=== PATIENT | male | born 1925 | race Caucasian/White ===

== ENCOUNTER 2016-11-12 02:46 | Inpatient (IN) | payer OTHER ==
--- NOTE | 2016-11-06 15:30 | EKG Report ---
Test Performed on : 11/06/2016 3:20:25 PM Test Reason : PAT Blood Pressure : / mmHG Vent. Rate : 065 BPM Atrial Rate : 065 BPM P-R Int : 236 ms QRS Dur : 144 ms QT Int : 466 ms P-R-T Axes : 033 115 015 degrees QTc Int : 484 ms Sinus rhythm. with 1st degree AV block. Right axis deviation Nonspecific intraventricular block Abnormal ECG When compared with ECG of 23-JUN-2014 18:43, MO interval has increased QRS axis shifted right Minimal criteria for Inferior infarct are no longer present T wave inversion less evident in Inferior leads Nonspecific T wave abnormality no longer evident in Anterolateral leads Confirmed by Cesar Blue MD ([id number]) on 11/06/2016 3:42:26 PM
[2016-11-06 15:47] LABS: HEMATOCRIT 38.3 % (42.0-52.0); HEMOGLOBIN 11.7 g/dL (14.0-18.0); MCH 27.9 PG (27-31); MCHC 30.5 g/dL (33-37); MCV 91.2 FL (81-99); MPV 10.3 FL (7.4-10.4); RBC 4.2 XMIL (4.7-6.1)
--- NOTE | 2016-11-06 16:03 | Diag Imaging Result Document ---
PROCEDURE NAME: CHEST-2 VIEWS - 11/06/2016 2 VIEWS OF THE CHEST: FINDINGS: There is a calcified granuloma in the right apex. There is a pacemaker on the left. There has been no significant change in the appearance of the chest since 06/30/2016. IMPRESSION: Stable chest.
[2016-11-06 16:14] LABS: CALCIUM 9.1 mg/dL (8.8-10.2); POTASSIUM 5.3 mmol/L (3.5-5.1)
[2016-11-12] MEDS ORDERED: ENTEREG ONE (06:58)
[2016-11-12] MEDS ORDERED: LR 1,000 ML ONE ×2 (06:59→08:25)
[2016-11-12] MEDS ORDERED: INVANZ 1 GM/NS 50 ML ONE (06:59)
[2016-11-12] MEDS ORDERED: SENSORCAINE 0.25%/EPI 1:200,000 ONE (08:25)
[2016-11-12 10:17] LABS: URINE SOURCE CATH
[2016-11-12 10:24] LABS: BILIRUBIN URINE NEGATIVE (NEGATIVE); BLOOD URINE SMALL (NEGATIVE); COLOR YELLOW; GLUCOSE URINE NEGATIVE (NEGATIVE); LEUKOCYTES URINE LARGE (NEGATIVE); NITRITE URINE NEGATIVE (NEGATIVE); PH URINE 6.5; PROTEIN URINE TRACE mg/dL (NEGATIVE); SP GRAVITY URINE 1.016; TURBIDITY URINE TURBID (CLEAR); UROBILINOGEN URINE NORMAL (NORMAL)
[2016-11-12 10:25] LABS: URINE MICRO REVIEW NEEDED? YES
[2016-11-12 10:33] LABS: UR EPITHELIAL CELLS <10 /HPF (<10); URINE BACTERIA NEGATIVE /HPF; URINE WBC TNTC /HPF (<10)
[2016-11-12 10:36] LABS: URINE CASTS NONE SEEN; URINE CRYSTALS NONE SEEN; URINE SMALL ROUND CELLS NONE SEEN
[2016-11-12] MEDS ORDERED: LR 500 ML ONE ×2 (11:40→12:54)
--- NOTE | 2016-11-12 11:55 | OPERATIVE NOTE ---
PROCEDURE DATE: 11/12/2016 PROCEDURE: Laparoscopic-assisted mobilization of splenic flexure; sigmoid colon resection; repair of colovesical fistula. SURGEON: Dr. Burrows. CNMT: Dr. Ann, who assisted in the anastomosis and exposure and decision making. Also assisted by Rafat Page and Rebecca Cleveland. PREOPERATIVE DIAGNOSIS: Colovesical fistula, diverticulosis. POSTOPERATIVE DIAGNOSIS: Colovesical fistula, diverticulosis. FINDINGS: The sigmoid colon was abnormal for about 22 cm. The fistula connection was actually pinched open or apart. We made the anastomosis between the descending colon and the distal sigmoid that felt normal. DESCRIPTION OF PROCEDURE: After satisfactory general endotracheal anesthesia was achieved, the patient was placed in Moo stirrups. The abdomen is prepped and draped in a sterile fashion. We anesthetized the skin just over the umbilicus, made a small vertical incision, dissected out the fascia, scored the fascia, introduced the 11 trocar Optiview technique into the abdominal cavity. We insufflated through this trocar under direct visualization. Used an 11 trocar in the left mid abdomen and a 5 trocar in the right upper quadrant. We placed the patient in reverse Trendelenburg and turned him to the right. We then incised the white line of Toldt from the mid abdomen cephalad toward the splenic flexure. We used the laparoscopic LigaSure to do that. Then raised up the greater omentum off the transverse colon and took it off from the mid transverse colon toward the splenic flexure as well. After doing this, were able to mobilize the splenic flexure toward the midline to give us a little bit more length. We were satisfied that we had mobilized it so that we could bring it down some if needed. After doing that, we then flattened the patient and made a 9 cm vertical incision in the hypogastrium below the umbilicus. We entered the abdominal cavity through this. We then placed the patient in Trendelenburg and continued the incision of the white line of Toldt down into the pelvis using the electrocautery and the ligature. We scored the peritoneum on the medial side as well. We are able to fracture the colovesical fistula with our finger to divide that. As we freed up the sigmoid loop we were able to pull it up into the wound and we identified a normal segment above the diseased segment and this is where we chose to divide the colon with a SOLOMON 80 blue cartridge. We then divided the mesentery with the LigaSure and continued from proximal to distal until we reached the distal normal sigmoid. We were able to pull it up proximal to the wound as well and the 2 normal segments of bowel came together satisfactorily without undue tension. Before I removed the diseased segment, I placed 3-0 silks as a seromuscular stitch on each the end of the colon and then we divided the abnormal segment with the electrocautery and handed it off. It measured 22 cm. We then placed a posterior row of 3-0 silks in a Lembert fashion and approximated those. We then removed the staple line from the proximal colon and constructed an inner layer of 3-0 Polysorb running locking stitch posteriorly, changed to a Zoe stitch anteriorly and then the final layer anteriorly was 3-0 silks in a Lembert fashion. This thereby completed and end-to-end 2 layer anastomosis. At this point we changed gloves and rid ourselves of the contaminated instruments. Again there was no undue tension on the anastomosis. We irrigated out the pelvis. I then looked at the back of the bladder and placed some 2-0 Polysorb [id number]-[id number] stitches to close that defect in the bladder. I placed a Edmundo drain into the pelvis bringing it out the right lower quadrant and placing it between the colon and the back of the bladder. We flattened the patient. We then proceeded to close the trocar hole in the left mid abdomen from inside with 2-0 Polysorb [id number] stitch. We closed the fascia in the supraumbilical port site with a 3-0 Polysorb simple stitch. We then closed the peritoneum with a 2-0 chromic. We closed the fascia with running #2 Prolene. We used 0.25 Marcaine with epinephrine lateral to the muscle in hopes that we could get some kind of intra-abdominal tap block. We also injected the subcutaneous tissue to help relieve the discomfort in the wound. We then closed the skin at each incision including the trocar sites with alonzo. Sterile dressings were applied. The drain was secured to the skin with a 2-0 silk. He tolerated procedure satisfactorily and sent to the recovery room in satisfactory condition.
[2016-11-12] MEDS ORDERED: DIPRIVAN 1% ONE (12:25)
[2016-11-12] MEDS ORDERED: VERSED ONE (12:26)
[2016-11-12] MEDS ORDERED: FENTANYL ONE (12:26)
[2016-11-12] MEDS ORDERED: LYRICA PO PRN (12:35)
[2016-11-12] MEDS ORDERED: NEURONTIN PO PRN (12:35)
[2016-11-12] MEDS ORDERED: ZOFRAN IV PRN (12:35)
[2016-11-12] MEDS ORDERED: [UNRECOGNIZED DRUG - OTHER] LEFT EYE SCH ×2 (12:35→13:30)
[2016-11-12] MEDS: MORPHINE ONE ×2 (12:40→13:00)
[2016-11-12] MEDS ORDERED: NEOSTIGMINE ONE (12:58)
[2016-11-12] MEDS ORDERED: EPHEDRINE ONE (12:58)
[2016-11-12] MEDS ORDERED: STERILE WATER INJ. ONE (12:58)
[2016-11-12] MEDS ORDERED: LIDOCAINE SYRINGE ONE (12:58)
[2016-11-12] MEDS ORDERED: NORCURON ONE (12:58)
[2016-11-12] MEDS ORDERED: LUBRIFRESH PM OPH OINTMENT ONE (12:58)
[2016-11-12] MEDS ORDERED: NEO-SYNEPHRINE ONE (12:58)
[2016-11-12] MEDS ORDERED: LR 3,000 ML ONE (12:59)
[2016-11-12] MEDS ORDERED: OFIRMEV 1000 MG/ISOTONIC SOLN 100 ML ONE (12:59)
[2016-11-12] MEDS ORDERED: QUELICIN (DOSE) ONE (12:59)
[2016-11-12] MEDS ORDERED: ROBINUL ONE (12:59)
[2016-11-12] MEDS: NS + KCL 20 MEQ 1,000 ML IV SCH ×2 (13:51→22:11)
[2016-11-12] MEDS: ZOSYN 3.375 GM/NS 50 ML IV SCH ×2 (14:00→19:33)
[2016-11-12] MEDS ORDERED: BLISTEX MEDICATED BERRY LIP BALM TOP PRN (14:02)
[2016-11-12] MEDS: OFIRMEV 1000 MG/ISOTONIC SOLN 100 ML IV SCH ×2 (15:58→22:11)
[2016-11-12] MEDS: DILAUDID IV PRN ×2 (16:53→22:29)
[2016-11-12] MEDS ORDERED: MIRAPEX PO SCH (21:30)
[2016-11-12] MEDS: FLOMAX PO SCH (21:38)
[2016-11-12] MEDS: LOVENOX SUBQ SCH (21:38)
[2016-11-12] MEDS: PERIDEX MT SCH (21:38)
[2016-11-12] MEDS: PRED FORTE 1% OPH SUSPENSION RIGHT EYE SCH (21:39)
[2016-11-12] MEDS: PROSCAR PO SCH (21:40)
[2016-11-12] MEDS: LYRICA PO PRN (22:15)
[2016-11-12] MEDS: MIRAPEX PO SCH (22:17)
[2016-11-13] MEDS: ZOSYN 3.375 GM/NS 50 ML IV SCH ×3 (02:14→13:48)
[2016-11-13] MEDS: OFIRMEV 1000 MG/ISOTONIC SOLN 100 ML IV SCH ×4 (04:55→21:47)
[2016-11-13 05:21] LABS: MANUAL DIFF NEEDED? NO
[2016-11-13 05:24] LABS: BASO% 0.1 % (0.0-0.8); EOS# 0.01 X1000 (0.0-0.7); EOS% 0.1 % (0.0-10.0); HEMOGLOBIN 11.5 g/dL (14.0-18.0); LYMPH# 1.39 X1000 (1.2-3.4); LYMPH% 13.1 % (20.5-51.1); MCH 27.9 PG (27-31); MCHC 31.1 g/dL (33-37); MCV 89.8 FL (81-99); MONO# 1.02 X1000 (0.11-0.59); MONO% 9.6 % (1.7-9.3); MPV 10.3 FL (7.4-10.4); NEUT% 77.1 % (42.2-75.2); PLT 181 X1000 (130-400); RBC 4.12 XMIL (4.7-6.1)
[2016-11-13 05:54] LABS: CALCIUM 8.4 mg/dL (8.8-10.2)
[2016-11-13] MEDS: THYROID PO SCH (06:29)
[2016-11-13] MEDS: NS + KCL 20 MEQ 1,000 ML IV SCH ×2 (06:30→15:19)
[2016-11-13] MEDS: ENTEREG PO SCH ×2 (08:03→21:47)
[2016-11-13] MEDS: COENZYME Q10 PO SCH (08:03)
[2016-11-13] MEDS: IMDUR PO SCH (08:04)
[2016-11-13] MEDS: FLOMAX PO SCH ×2 (08:04→21:47)
[2016-11-13] MEDS: CORDARONE PO SCH (08:04)
[2016-11-13] MEDS: PERIDEX MT SCH ×2 (08:05→21:46)
[2016-11-13] MEDS: PRED FORTE 1% OPH SUSPENSION RIGHT EYE SCH (08:05)
[2016-11-13] MEDS: DILAUDID IV PRN ×2 (11:11→21:46)
[2016-11-13] MEDS: MIRAPEX PO SCH (21:46)
[2016-11-13] MEDS: PROSCAR PO SCH (21:47)
[2016-11-13] MEDS: LOVENOX SUBQ SCH (21:47)
[2016-11-14] MEDS: NS + KCL 20 MEQ 1,000 ML IV SCH ×4 (00:38→18:24)
[2016-11-14] MEDS: DILAUDID IV PRN ×5 (01:48→22:56)
[2016-11-14] MEDS: OFIRMEV 1000 MG/ISOTONIC SOLN 100 ML IV SCH ×4 (03:53→21:39)
[2016-11-14] MEDS: PRED FORTE 1% OPH SUSPENSION RIGHT EYE SCH ×3 (05:14→21:39)
[2016-11-14 05:50] LABS: MANUAL DIFF NEEDED? NO
[2016-11-14 05:53] LABS: BASO% 0.1 % (0.0-0.8); EOS# 0.07 X1000 (0.0-0.7); HEMATOCRIT 34.5 % (42.0-52.0); HEMOGLOBIN 10.8 g/dL (14.0-18.0); IMM GRAN# 0.04 X1000 (0.0-0.04); IMM GRAN% 0.6 % (0.0-0.5); LYMPH# 0.77 X1000 (1.2-3.4); LYMPH% 10.8 % (20.5-51.1); MCH 27.8 PG (27-31); MCHC 31.3 g/dL (33-37); MCV 88.9 FL (81-99); MONO# 0.69 X1000 (0.11-0.59); MONO% 9.6 % (1.7-9.3); MPV 10.3 FL (7.4-10.4); NEUT% 77.9 % (42.2-75.2); PLT 171 X1000 (130-400); RBC 3.88 XMIL (4.7-6.1)
[2016-11-14 06:12] LABS: AGAP 12; BUN 9 mg/dL (8-22); CALCIUM 8.5 mg/dL (8.8-10.2); CHLORIDE 102 mmol/L (98-107); COSMO 269; POTASSIUM 4.6 mmol/L (3.5-5.1); SODIUM 135 mmol/L (136-145); TCO2 21 mmol/L (25-35)
[2016-11-14] MEDS: THYROID PO SCH (07:39)
[2016-11-14] MEDS: LOVENOX SUBQ SCH ×2 (09:35→21:39)
[2016-11-14] MEDS: CORDARONE PO SCH (10:18)
[2016-11-14] MEDS: IMDUR PO SCH (10:18)
[2016-11-14] MEDS: ENTEREG PO SCH ×2 (10:18→21:37)
[2016-11-14] MEDS: FLOMAX PO SCH ×2 (10:18→21:37)
[2016-11-14] MEDS: COENZYME Q10 PO SCH (10:18)
[2016-11-14] MEDS: PERIDEX MT SCH ×2 (10:18→21:37)
[2016-11-14] MEDS: GLUCOPHAGE PO SCH (17:18)
[2016-11-14] MEDS: MIRAPEX PO SCH (21:37)
[2016-11-14] MEDS: PROSCAR PO SCH (21:37)
[2016-11-15] MEDS: DILAUDID IV PRN ×4 (02:19→20:42)
[2016-11-15] MEDS: NS + KCL 20 MEQ 1,000 ML IV SCH ×2 (03:05→09:20)
[2016-11-15] MEDS: OFIRMEV 1000 MG/ISOTONIC SOLN 100 ML IV SCH ×2 (03:06→09:20)
[2016-11-15 05:21] LABS: MANUAL DIFF NEEDED? NO
[2016-11-15 05:26] LABS: BASO% 0.1 % (0.0-0.8); EOS# 0.14 X1000 (0.0-0.7); EOS% 1.7 % (0.0-10.0); HEMATOCRIT 36.8 % (42.0-52.0); HEMOGLOBIN 11.6 g/dL (14.0-18.0); IMM GRAN# 0.03 X1000 (0.0-0.04); IMM GRAN% 0.4 % (0.0-0.5); LYMPH# 1.12 X1000 (1.2-3.4); LYMPH% 13.7 % (20.5-51.1); MCH 28.1 PG (27-31); MCHC 31.5 g/dL (33-37); MCV 89.1 FL (81-99); MONO# 0.63 X1000 (0.11-0.59); MONO% 7.7 % (1.7-9.3); MPV 10.4 FL (7.4-10.4); NEUT% 76.4 % (42.2-75.2); PLT 207 X1000 (130-400); RBC 4.13 XMIL (4.7-6.1)
[2016-11-15 06:09] LABS: AGAP 10; BUN 7 mg/dL (8-22); CALCIUM 8.7 mg/dL (8.8-10.2); CHLORIDE 104 mmol/L (98-107); COSMO 275; POTASSIUM 4.1 mmol/L (3.5-5.1); SODIUM 136 mmol/L (136-145); TCO2 22 mmol/L (25-35)
[2016-11-15] MEDS: THYROID PO SCH (06:39)
[2016-11-15] MEDS: PERIDEX MT SCH ×2 (09:20→20:41)
[2016-11-15] MEDS: ENTEREG PO SCH (09:23)
[2016-11-15] MEDS: LOVENOX SUBQ SCH ×2 (09:23→20:41)
[2016-11-15] MEDS: CORDARONE PO SCH (09:24)
[2016-11-15] MEDS: COENZYME Q10 PO SCH (09:24)
[2016-11-15] MEDS: FLOMAX PO SCH ×2 (09:24→20:41)
[2016-11-15] MEDS: IMDUR PO SCH (09:24)
[2016-11-15] MEDS: GLUCOPHAGE PO SCH ×2 (09:24→17:37)
[2016-11-15] MEDS: SECTRAL PO SCH (09:24)
[2016-11-15] MEDS: PRED FORTE 1% OPH SUSPENSION RIGHT EYE SCH ×2 (09:33→20:43)
[2016-11-15] MEDS: NORCO-10 PO PRN (20:41)
[2016-11-15] MEDS: MIRAPEX PO SCH (20:41)
[2016-11-15] MEDS: PROSCAR PO SCH (20:42)
[2016-11-16] MEDS: DILAUDID IV PRN ×3 (00:21→09:40)
[2016-11-16 05:57] LABS: MANUAL DIFF NEEDED? NO
[2016-11-16 06:06] LABS: BASO% 0.2 % (0.0-0.8); EOS# 0.22 X1000 (0.0-0.7); EOS% 3.6 % (0.0-10.0); HEMATOCRIT 34.8 % (42.0-52.0); HEMOGLOBIN 10.8 g/dL (14.0-18.0); IMM GRAN# 0.03 X1000 (0.0-0.04); IMM GRAN% 0.5 % (0.0-0.5); LYMPH# 0.99 X1000 (1.2-3.4); LYMPH% 16.2 % (20.5-51.1); MCH 27.6 PG (27-31); MONO# 0.51 X1000 (0.11-0.59); MONO% 8.3 % (1.7-9.3); MPV 9.9 FL (7.4-10.4); NEUT% 71.2 % (42.2-75.2); PLT 212 X1000 (130-400); RBC 3.91 XMIL (4.7-6.1)
[2016-11-16 06:42] LABS: AGAP 11; BUN 7 mg/dL (8-22); CALCIUM 8.5 mg/dL (8.8-10.2); CHLORIDE 106 mmol/L (98-107); COSMO 279; POTASSIUM 4.3 mmol/L (3.5-5.1); SODIUM 140 mmol/L (136-145); TCO2 23 mmol/L (25-35)
[2016-11-16] MEDS: NS + KCL 20 MEQ 1,000 ML IV SCH (06:52)
[2016-11-16] MEDS: THYROID PO SCH (06:52)
[2016-11-16] MEDS: PERIDEX MT SCH ×2 (09:19→21:15)
[2016-11-16] MEDS: SECTRAL PO SCH (09:19)
[2016-11-16] MEDS: COENZYME Q10 PO SCH (09:19)
[2016-11-16] MEDS: CORDARONE PO SCH (09:20)
[2016-11-16] MEDS: GLUCOPHAGE PO SCH ×2 (09:20→18:27)
[2016-11-16] MEDS: IMDUR PO SCH (09:20)
[2016-11-16] MEDS: FLOMAX PO SCH ×2 (09:20→21:14)
[2016-11-16] MEDS: PRED FORTE 1% OPH SUSPENSION RIGHT EYE SCH ×2 (09:21→21:15)
[2016-11-16] MEDS: ELIQUIS PO SCH ×2 (09:40→21:14)
[2016-11-16] MEDS: NORCO-10 PO PRN ×2 (14:36→21:14)
[2016-11-16] MEDS: PROSCAR PO SCH (21:14)
[2016-11-16] MEDS: MIRAPEX PO SCH (21:14)
[2016-11-17] MEDS: THYROID PO SCH (06:26)
[2016-11-17] MEDS: DILAUDID IV PRN (08:13)
[2016-11-17] MEDS: FLOMAX PO SCH ×2 (09:38→21:00)
[2016-11-17] MEDS: CORDARONE PO SCH (09:38)
[2016-11-17] MEDS: IMDUR PO SCH (09:38)
[2016-11-17] MEDS: ELIQUIS PO SCH ×2 (09:38→21:01)
[2016-11-17] MEDS: GLUCOPHAGE PO SCH ×2 (09:38→21:01)
[2016-11-17] MEDS: PERIDEX MT SCH ×2 (09:38→21:00)
[2016-11-17] MEDS: COENZYME Q10 PO SCH (09:39)
[2016-11-17] MEDS: SECTRAL PO SCH (09:39)
[2016-11-17] MEDS: PRED FORTE 1% OPH SUSPENSION RIGHT EYE SCH ×2 (09:39→21:02)
--- NOTE | 2016-11-17 09:39 | Diag Imaging Result Document ---
PROCEDURE NAME: CYSTOGRAM 1 2 OR 3 FILMS - 11/17/2016 CYSTOGRAM: FINDINGS: The bladder was filled with water soluble contrast for a volume of approximately 200 mL. At this point the patient had a strong urge to evacuate his bowels. There is no evidence of extravasation of contrast from the bladder into the colon however and the patient was able to void completely. A Arvizu catheter remains in place. There is a moderate amount of fecal debris remaining in the colon, particularly in the ascending colon and rectosigmoid. The stomach and small bowel are not distended. IMPRESSION: No evidence of residual vesicocolic fistula.
[2016-11-17] MEDS: PYRIDIUM PO SCH ×3 (12:05→21:01)
[2016-11-17] MEDS ORDERED: PROTONIX IV SCH (20:15)
[2016-11-17] MEDS ORDERED: SODIUM CHLORIDE 0.9% INJ SCH (20:15)
[2016-11-17] MEDS ORDERED: MIRAPEX PO SCH (21:00)
[2016-11-17] MEDS: PROSCAR PO SCH (21:00)
[2016-11-17] MEDS: NORCO-10 PO PRN (22:03)
[2016-11-18] MEDS: DILAUDID IV PRN (02:06)
[2016-11-18] MEDS: LYRICA PO PRN (02:16)
[2016-11-18] MEDS: NS + KCL 20 MEQ 1,000 ML IV SCH (06:23)
[2016-11-18] MEDS: PYRIDIUM PO SCH (06:24)
[2016-11-18] MEDS: THYROID PO SCH (06:24)
[2016-11-18 07:43] VITALS: BP 149/74
--- NOTE | 2016-11-20 05:38 | DISCHARGE SUMMARY ---
ADMISSION DATE: 11/12/2016 DISCHARGE DATE: 11/18/2016 PRIMARY DISCHARGE DIAGNOSIS: Colovesical fistula. OTHER DIAGNOSES: 1. 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 2. Cerebrovascular disease with history of a stroke. 3. Coronary artery disease. 4. Gastroesophageal reflux disease. PRIMARY PROCEDURE: Repair of colovesical fistula. HISTORY: This is an 89-year-old patient with a colovesical fistula who has had significant diverticular disease because of his fistula. He was prepped as an outpatient and admitted the morning of the . He went to the operating room and underwent a laparoscopic splenic flexure mobilization, and then an open sigmoid resection with suture repair of his bladder. Postoperatively, he did generally well. He was maintained in the unit. The first night after surgery, he was placed on Zosyn. We awaited till the first postoperative day to start his Lovenox. He was transferred out of the unit on the first postoperative day. He was started on liquids on the 2nd postoperative day. We restarted his p.o. medicines. We increased his Lovenox to twice a day. On the 3rd postoperative day, we stopped his Entereg because of some cramping. We removed his drain and we advanced his diet. On the 4th postoperative day, we did a C S of his urine and restarted his Eliquis and stopped the Lovenox. The Lovenox was 5 mg b.i.d. On the fifth postoperative day, we did a cystogram and it was negative for leak. We put him on Pyridium at the time that we removed his Arvizu. By the 6th postoperative day, he was tolerating solid food. His bowels had moved. He was urinating satisfactorily. He had one episode of trouble swallowing but he is to follow up with Dr. Carmona as an outpatient to further evaluate a possible distal esophageal stricture. I am pleased with his progress. His urine culture came back negative so we did not discharge him on any antibiotics. We did discharge him home on some pain medication as well as Pyridium for his urinary analgesia. He will resume his other usual medications.
== END 2016-11-18 09:54 | disposition home or self-care (01) | DRG 655 ==
LOC: SURHOLD 02:46 → ICU 11:27 → 4N 11-13 16:53
PROVIDERS: ADMIT Surgery; ATTEND Surgery
PROC: 0DBN0ZZ Excision of Sigmoid Colon, Open Approach (ICD-10-PCS; principal; 2016-11-12 08:45)
PROC: 0TQB0ZZ Repair Bladder, Open Approach (ICD-10-PCS; 2016-11-12 08:45)
DX: N32.1 Vesicointestinal fistula (principal); I11.0 Hypertensive heart disease with heart failure; E11.40 Type 2 diabetes mellitus with diabetic neuropathy, unspecified; I27.2 Other secondary pulmonary hypertension; I50.9 Heart failure, unspecified; Z95.1 Presence of aortocoronary bypass graft; K57.30 Diverticulosis of large intestine without perforation or abscess without bleeding; F51.02 Adjustment insomnia; Z82.3 Family history of stroke; Z87.891 Personal history of nicotine dependence; Z79.84 Long term (current) use of oral hypoglycemic drugs; Z79.899 Other long term (current) drug therapy; Z79.82 Long term (current) use of aspirin; Z79.02 Long term (current) use of antithrombotics/antiplatelets; Z86.73 Personal history of transient ischemic attack (TIA), and cerebral infarction without residual deficits; K21.9 Gastro-esophageal reflux disease without esophagitis; Z96.651 Presence of right artificial knee joint; H54.0 Blindness, both eyes; Z95.5 Presence of coronary angioplasty implant and graft; Z95.0 Presence of cardiac pacemaker; I34.0 Nonrheumatic mitral (valve) insufficiency; K44.9 Diaphragmatic hernia without obstruction or gangrene; N40.0 Benign prostatic hyperplasia without lower urinary tract symptoms; Z87.442 Personal history of urinary calculi; E03.9 Hypothyroidism, unspecified
CPT/HCPCS: 71020; 74430; 80048; 81001; 82948; 85025; 85027; 86850; 86900; 86901; 87088; 88307; 93005; 93010; 94002; 94761; 94762; 94799; J0131; J0330; J1170; J1335; J1650; J2250; J2270; J2370; J2405; J2543; J3010; J3480; J7120; Q9958; S0138; 97001-GP; 97116-GP; J2710

== ENCOUNTER 2017-03-24 14:12 | Inpatient (IN) ==
--- NOTE | 2017-03-24 14:57 | Diag Imaging Result Document ---
PROCEDURE NAME: HEAD W/O CONTRAST - 03/24/2017 CT BRAIN WITHOUT CONTRAST. TECHNIQUE: Dose reduction protocol. COMPARISON: Compared to 01/29/2016. FINDINGS: No parenchymal hemorrhage. No epidural or subdural hematoma. No subarachnoid hemorrhage. There is atrophy with chronic microvascular ischemic changes. The appearance is similar to that of the prior exam. No mass identified on this noncontrasted exam. No hydrocephalus. No sinus opacification. Minimal mucosal thickening in the maxillary sinuses. IMPRESSION: 1. No hemorrhage. 2. Atrophy with chronic microvascular ischemic changes. The preliminary results were discussed with Dr. Lincoln.
--- NOTE | 2017-03-24 15:03 | EKG Report ---
Test Performed on : 03/24/2017 2:51:06 PM Test Reason : ams Blood Pressure : / mmHG Vent. Rate : 062 BPM Atrial Rate : 062 BPM P-R Int : 198 ms QRS Dur : 146 ms QT Int : 482 ms P-R-T Axes : 022 254 088 degrees QTc Int : 489 ms Normal sinus rhythm. Right superior axis deviation Nonspecific intraventricular block Abnormal ECG When compared with ECG of 06-NOV-2016 15:20, DC interval has decreased Questionable change in QRS axis T wave inversion no longer evident in Inferior leads T wave amplitude has decreased in Lateral leads Unconfirmed Result
[2017-03-24] MEDS ORDERED: NS 1,000 ML IV ONE (15:25)
--- NOTE | 2017-03-24 16:26 | ED EKG INTERP ---
This chart was entered by Razia Cao Scribe, acting as scribe for Noble Vines Jr, MD. EKG Interpretation - EKG Time of EKG reading by physician:: 14:51 EKG Read and Signed by:: Noble Vines Jr EKG Interpretation (*Must complete 3 of following elements*): Abnormal Rate: 62 (RIGHT superior axis deviation; nonspecific intraventricular block) Rhythm: NSR This chart was documented by the indicated scribe, (Razia Cao Scribe) and accurately reflects the services I performed and decisions made by Jasmyn magana Dewight X. Jr, MD, as attested by the provider's signature.
--- NOTE | 2017-03-24 16:33 | PROVIDER DOCUMENTATION ---
HPI-Neurological Disorder - General Chief Complaint: Altered Mental Status Stated Complaint: sent by MD for further eval Time Seen by Provider: 03/24/17 14:28 Source: patient, other (Dr. Lincoln) Allergies/Adverse Reactions: Patient Allergies Allergy/AdvReac Type Severity Reaction Status Date / Time No Known Allergies Allergy Verified 11/19/16 05:31 Home Medications: Home Medication List Medication Instructions Recorded Confirmed Last Taken Type Metformin [Glucophage] 500 mg PO BID CC 12/24/13 11/19/16 03/24/17 08:00 History Multivitamins/Minerals [Centrum 1 each PO DAILY 12/24/13 11/19/16 03/24/17 08: 00 History Silver] [place]-3 Fatty Acids [Fish Oil] 1,000 mg PO DAILY 12/24/13 11/19/16 03/24/17 08: 00 History Oxycodone/APAP 5 mg/325 mg 1 - 3 each PO Q4H PRN PRN 12/24/13 11/19/16 06/23/14 17:00 History [Percocet-5] PRAVAstatin [Pravachol] 40 mg PO EVERY OTHER DAY 12/24/13 11/19/16 03/24/17 08: 00 History Prednisolone Acetate 1% 1 drop RIGHT EYE BID 12/24/13 11/19/16 11/12/16 06:00 History Thyroid,Pork [Cornell Thyroid] 60 mg PO DAILY 12/24/13 11/19/16 03/24/17 08:00 History Ubidecarenone [Co Q-10] 400 mg PO DAILY 12/24/13 11/19/16 03/24/17 08:00 History Finasteride 5 mg PO QHS 01/27/14 11/19/16 03/23/17 20:00 History Amiodarone [Cordarone] 200 mg PO DAILY #0 06/28/14 11/19/16 03/24/17 08:00 Rx Gabapentin [Neurontin] 900 mg PO QHS PRN 11/06/16 11/19/16 11/11/16 History Isosorbide Mononitrate [Isosorbide 30 mg PO DAILY 11/06/16 11/19/16 03/24/17 08: 00 History Mononitrate ER] Omeprazole [Prilosec] 20 mg PO DAILY@0700 11/06/16 11/19/16 11/11/16 History Pramipexole Di-HCl [Mirapex] 1 - 2 tab PO QHS 11/06/16 11/19/16 03/23/17 20:00 History Pregabalin [Lyrica] 150 mg PO DAILY PRN 11/06/16 11/19/16 11/11/16 History Rimexolone 1% Oph Soln [Vexol 1% 1 drop LEFT EYE DIRECTED 11/06/16 11/19/16 11/12/16 06:00 History Oph Soln] Iron Carbonyl/Vit C/Vit B12/FA 1 each PO DAILY #30 tablet 11/25/16 03/24/17 08: 00 Rx [Icar-C Plus] Tamsulosin [Flomax] 0.4 mg PO DAILY #0 11/25/16 11/19/16 03/24/17 08:00 Rx Apixaban [Eliquis] 5 mg PO DAILY 03/24/17 03/24/17 03/24/17 08:00 History Metoprolol [Lopressor] 25 mg PO DAILY 03/24/17 03/24/17 03/24/17 08:00 History Torsemide 10 mg PO DAILY 03/24/17 03/24/17 03/24/17 08:00 History - History of Present Illness-Neuro Nature of Presenting Problem: 89 y/o WM with a PMHx of TIA and Basal Artery Partial Thrombosis that presents to the ED with stroke like symptoms. Pt was recently evaluated at [facility] after having slurred speech and altered gait. Workup at showed a negative CT of head, Echo and Carotid evaluation. At approximately 10-11 AM, patient sustained a fall in which he hit his head and subsequently had right limb ataxia, slurred speech and visual disturbance. ROS is otherwise negative. Severity: reports: moderate Context: reports: head injury, impaired speech, other (limb ataxia) Character of Altered Mental Status: reports: decreased responsiveness Any recent trauma/injury?: reports: to head Character of Deficits: reports: impaired speech, falling New weakness or altered sensation location:: reports: other (worsening of limb ataxia) Cognitive Baseline: other (limb ataxia, poor vision) Associated Symptoms: reports: slurred speech, weakness Review of Systems - Adult - REVIEW OF SYSTEMS - ADULT Constitutional: reports: no symptoms reported Eyes: reports: blurred vision Ears, Nose, Mouth & Throat: reports: no symptoms reported Cardiovascular: reports: no symptoms reported Respiratory: reports: no symptoms reported, excessive sputum production Genitourinary: reports: no symptoms reported Musculoskeletal: reports: muscle weakness Integumentary: reports: no symptoms reported Neurological: reports: ataxia, slurred speech Psychiatric: reports: no symptoms reported Endocrine: reports: no symptoms reported Hematologic/Lymphatic: reports: no symptoms reported Allergic/Immunologic: reports: no symptoms reported Past History - Adult - PAST MEDICAL HISTORY-ADULT Review of Records: reports: Old Records Reviewed, Nursing Assessment Review, Medications Reviewed Major Childhood Illnesses: reports: denies history Cardiovascular: reports: HTN, pacemaker Respiratory: reports: denies history Gastrointestinal: reports: denies history Genitourinary: reports: denies history Musculoskeletal: reports: denies history Neurological: reports: CVA Psychiatric: reports: denies history Endocrine/Immune: reports: denies history Other Conditions: reports: denies history - PRIOR SURGERIES/PROCEDURES Surgical/Procedure History: reports: pacemaker - PRIOR HOSPITALIZATIONS Prior Hospitalizations: reports: for similar symptoms, for other non-related - IMMUNIZATION STATUS Childhood Immunizations: See Nurse Assessment Flu Vaccine: See Nurse Assessment - FAMILY HISTORY Family History: reviewed, not pertinent - SOCIAL HISTORY Smoking: denies Substance Use: none/never Alcohol Use Frequency: never Living Situation: alone Physical Exam- Neurological - Physical Exam-Neuro General Appearance: appears well, alert, no apparent distress. negative: slow to respond, obtunded Eye Exam: right eye: other (cataract), left eye: normal inspection, PERRL, EOMI HENMT: normocephalic/atraumatic, moist mucous membranes. negative: pharyngeal erythema, tonsillar exudate Head Injury: no evidence of injury. negative: Geiger's Sign, contusions, lacerations, raccoon eyes, swelling, tenderness Neck: non-tender, full range of motion, supple. negative: C-spine tenderness Respiratory: chest non-tender, lungs clear, normal breath sounds. negative: crackles, rales, rhonchi, stridor, wheezing Cardiovascular: normal peripheral pulses, regular rate, rhythm, no murmur. negative: irregularly irregular Abdominal Exam: normal bowel sounds, non tender, soft. negative: distended, guarding, rigid, rebound, tenderness Lymphatic: no adenopathy Extremity: non-tender, pedal edema. negative: deformity, erythema, swelling, tenderness office assistance Exam: normal speech, hearing deficit (R), hearing deficit (L). negative: facial droop, facial paresthesias, facial weakness Motor/Sensory: weak motor strength RUE, weak motor strength RLE. negative: no sensory deficit Neurologic: motor weakness. negative: facial droop, focal weakness, sensory deficit Integumentary: normal color, normal turgor, warm/dry. negative: tenderness, warm Psych/Mental Status: normal mood/affect, normal thought content, normal thought process, oriented x 3 - Glascow Coma Scale Best Eye Response: (4) open spontaneously Best Verbal Response: (5) oriented Best Motor Response: (6) obeys commands Total Glascow Score: 15 Progress - PLAN OF CARE/RESULTS Progress/Plan/Lab Results: Vital Signs - 8 hr 03/24/17 14:51 Pulse Rate 65 Respiratory Rate 18 Blood Pressure 122/60 O2 Sat by Pulse Oximetry 100 Laboratory Results - last 24 hr 03/24/17 15:16 WBC 6.78 RBC 4.40 L Hgb 12.5 L Hct 40.0 L MCV 90.9 MCH 28.4 MCHC 31.3 L RDW Std Deviation 15.3 H Plt Count 182 MPV 10.8 H Immature Gran % (Auto) 0.0 Neut % (Auto) 67.3 Lymph % (Auto) 20.2 L Weakley % (Auto) 10.3 H Eos % (Auto) 1.9 Baso % (Auto) 0.3 Immature Gran # (Auto) 0.00 Neut # (Auto) 4.56 Lymph # (Auto) 1.37 Weakley # (Auto) 0.70 H Eos # (Auto) 0.13 Baso # (Auto) 0.02 Orders Category Date Time Status CTA [ANGIOGRAM/HEAD AND NECK] [CT] Stat Exams 03/24/17 15:03 Taken HEAD W/O CONTRAST [CT] Stat Exams 03/24/17 14:17 Draft CBC WITH ELECTRONIC DIFF [HEME] Stat Lab 03/24/17 15:16 Completed COMPREHENSIVE METABOLIC PANEL [CHEM] Stat Lab 03/24/17 15:16 Received PROTIME WITH INR [COAG] Stat Lab 03/24/17 15:16 Received 0.9% Sodium Chloride Inj [Ns] 1,000 ml Med 03/24/17 15:25 Active IV 200 mls/hr EKG [EKG] Stat Ther 03/24/17 14:51 Draft Result Diagrams: 03/24/17 15:16 - CT/MRI 1 CT Study: Head Impression: Abnormal CT Results: no hemorrhage. microvascular ischemic changes - CONSULTS/PCP/HOSPITALIST Notification #1 *Consult/PCP/Hospitalist*: Dr. Lincoln Time Discussed: 16:30 Consult Disposition: other (will see in hospital) #2 Consult: Dr. 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
[2017-03-24 16:48] LABS: MANUAL DIFF NEEDED? NO
[2017-03-24 16:51] LABS: BASO% 0.3 % (0.0-0.8); EOS# 0.13 X1000 (0.0-0.7); EOS% 1.9 % (0.0-10.0); HEMOGLOBIN 12.5 g/dL (14.0-18.0); LYMPH# 1.37 X1000 (1.2-3.4); LYMPH% 20.2 % (20.5-51.1); MCH 28.4 PG (27-31); MCHC 31.3 g/dL (33-37); MCV 90.9 FL (81-99); MONO% 10.3 % (1.7-9.3); MPV 10.8 FL (7.4-10.4); NEUT% 67.3 % (42.2-75.2); PLT 182 X1000 (130-400)
[2017-03-24] MEDS ORDERED: TYLENOL PO PRN (16:56)
[2017-03-24] MEDS ORDERED: MORPHINE IV PRN (16:56)
[2017-03-24] MEDS ORDERED: ZOFRAN IV PRN (16:56)
[2017-03-24 17:01] LABS: ALBUMIN 3.9 g/dL (3.5-5.0); CALCIUM 9.3 mg/dL (8.8-10.2); POTASSIUM 4.8 mmol/L (3.5-5.1); TOTAL BILIRUBIN 0.34 mg/dL (0.20-1.00); TOTAL PROTEIN 7.4 g/dL (6.3-8.3)
[2017-03-24 17:05] LABS: INR 1.08; PROTIME 11.4 Seconds (9.2-11.7)
--- NOTE | 2017-03-24 17:37 | CONSULTATION ---
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 History is that he had an accidental fall stepping through a doorway 2 days ago and struck his head. Immediately after that, he seemed well. A short time later, he was noted to have slurred speech and unsteady gait worse than baseline. He was transported by helicopter to [facility] where he was observed overnight and discharged yesterday. Workup there included initial noncontrast CT of the head reported unremarkable. He reports a followup scan was again unremarkable on the day of discharge. He reports carotid ultrasound and echocardiogram were also done and were apparently not remarkable. There were no medication adjustments. Today, late morning time frame, he noted some clumsiness while shaving with his right hand and shortly after that noticed slurred speech. He noted increased gait difficulty. He may have had difficulty raising his right leg while seated. There was never unconsciousness, altered awareness, memory gap, significant headache. There was no new vision disturbance. There was no apparent dysphasia. He presented to the emergency room and he has had workup including a noncontrast CT of the head showing nothing new and nothing remarkable. CT angiogram just completed shows possible new finding in the basilar artery. PAST MEDICAL HISTORY: Past history is remarkable for chronic very poor vision, chronic very poor hearing, peripheral neuropathy with significant dysesthesia, possible additional restless legs. 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 PHYSICAL EXAMINATION: On exam now, he is awake, alert, attentive, appropriate. Speech is dysarthric but significantly improved compared to his speech over the telephone an hour prior to this exam. He has definite right hemiataxia. He has difficulty with right narzxu-mo-onjg much more than the left. Gait is unsteady with a tendency to veer to the right. He has good power in the legs but subjectively reports right leg seems weak. Visual field is full but difficult to revenue coordinator formally with very poor acuity. Hearing is poor bilaterally, maybe a little bit better in the right ear than the left. Facial motility is diminished bilaterally. Tongue is midline. Palate is midline. IMPRESSION: New right hemiataxia and significant dysarthria but no definite dysphasia. History sounds like two separate episodes or one biphasic event. In light of his risk factors and age, most worrisome possibility would be basilar artery thrombosis which may defy all management. I discussed that frankly with his . At this point, he seems to be stable and improving and I hope that will continue. I would continue hydrating aggressively, continue his anticoagulant and aspirin, be very cautious with medicines that might lower blood pressure, treat blood sugar and lipids aggressively. I believe that records from recent [place] hospitalization have been requested and we can see if there is anything more to learn from that. We might consider physical therapy. Further plans will depend on his clinical course. cc: Teresa Lincoln III, MD MTDD
--- NOTE | 2017-03-24 17:37 | Diag Imaging Result Document ---
PROCEDURE NAME: ANGIOGRAM/HEAD AND NECK - 03/24/2017 CT ANGIOGRAM NECK AND BRAIN. MIP IMAGES OBTAINED: COMPARISON: 03/22/2017. FINDINGS: There is normal flow within each common carotid artery and within the right internal carotid artery. MIP images obscure the distal left internal carotid artery, but they are normal on the axial images. There is flow within each vertebral artery. Small filling defects within the basilar artery. This is similar to the study from [place]. Normal flow in each anterior and each middle cerebral artery. Normal flow in each posterior cerebral artery. No aneurysm. IMPRESSION: 1. Apparent thrombus within the basilar artery similar to the recent study performed at [facility]. 2. No significant stenosis within either common carotid artery or within either internal carotid artery. The results were discussed with Dr. Lincoln.
[2017-03-24] MEDS ORDERED: ASPIRIN PO STA (18:08)
[2017-03-24] MEDS ORDERED: NEURONTIN PO PRN (18:10)
[2017-03-24] MEDS ORDERED: PERCOCET-5 PO PRN (18:10)
[2017-03-24] MEDS ORDERED: PROTONIX IV SCH (18:15)
[2017-03-24] MEDS ORDERED: SODIUM CHLORIDE 0.9% INJ SCH (18:15)
[2017-03-24] MEDS ORDERED: NS 1,000 ML IV SCH (18:15)
[2017-03-24] MEDS: NS 1,000 ML IV SCH (18:37)
[2017-03-24] MEDS: ELIQUIS PO SCH (21:00)
[2017-03-24] MEDS ORDERED: PROSCAR PO SCH (21:00)
[2017-03-24] MEDS: PRED FORTE 1% OPH SUSPENSION RIGHT EYE SCH (21:00)
[2017-03-24] MEDS ORDERED: MIRAPEX PO SCH (21:00)
--- NOTE | 2017-03-24 22:10 | HISTORY AND PHYSICAL ---
CHIEF COMPLAINT: Altered mental status. Transient ischemic attack symptoms with dizziness, falling, speech impediments, weakness in the right side. HISTORY OF PRESENT ILLNESS: He is an 89-year-old, pleasant white gentleman, retired radiologist from the hospital. He has been doing well until last Thursday afternoon. He was vacationing [place]. He had a similar episode, subsequently had a fall with head injury. He was transferred to [facility] with [facility] by ambulance request. CT head was negative and apparently he was discharged home yesterday. He had carotid Dopplers, echo was done. I do not have any reports. Again, this afternoon he had a similar TIA episode, confusion , and the family brought him to the emergency room. Apparently, patient was evaluated by Dr. Lincoln. The patient symptoms were resolving. Suspicious for transient ischemia. We and not able to do MRI due to pacemaker. He had a CT head that was stable. 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 Dr. Lincoln felt he needs to be in the hospital with IV fluids, keep the blood pressure around 150 and hold the metoprolol and also continue on aspirin, Eliquis and decrease the LDL. Currently he is stable. He also has some mumbling of his speech. His BUN and creatinine were slightly high. He is getting IV fluids 80 mL an hour. As a result, he has been hospitalized. I did discuss with the family in the emergency room. PAST MEDICAL HISTORY: Abnormal EKG with right bundle. Paroxysmally atrial flutter. BPH. Coronary artery disease. Type 2 diabetes. Glaucoma. Hyperlipidemia. Hypothyroidism. 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 PAST SURGICAL HISTORY: Bypass surgery. Appendectomy. Multiple cardiac stents. Status post cardioversion x2. Pseudoaneurysm repair in the left groin. Left cataract surgery. Streptomycin injection into the right ear. Multiple right eye surgery for glaucoma. Sigmoid resection for colovesical fistula repair in October by Dr. Burrows. MEDICINES IN MY OFFICE FOLLOWS: 1. Alphagan drops left eye once daily. 2. Cordarone 200 daily. 3. [place] Thyroid 60 mg daily. 4. Aspirin 80 mg daily. 5. Centrum Silver 1 tablet daily. 6. Cosopt 1 drop b.i.d. in the left eye. 7. B12 injections once a month. 8. Demadex 10 mg daily. 9. Eliquis 5 p.o. b.i.d. 10. Finasteride 5 mg daily. 11. Lyrica 50, 4 times a day. 12. Metformin 500, 2 tablets b.i.d. 13. Neurontin 300, 6 per day. 14. Nitrostat as needed. 15. Pandora 10 b.i.d. 16. Prilosec 40 mg daily. 17. Mirapex 0.25. 1-2 tablets as needed. 18. Pravastatin 40 mg and 80 mg alternate. 19. Sectral 200 mg 3 times daily. 20. Trazodone 50 once daily. 21. CO Q 10 1 tablet daily. 22. Zoloft 25 daily. ALLERGIES: Not known. SOCIAL HISTORY: , retired radiologist, 4 children. Lives in [place]. No smoking. No alcohol. No drug abuse. FAMILY HISTORY: Father and mother of stroke of unknown age. VACCINATIONS: Flu vaccine in 2015, pneumococcal 2010. Last prostate exam March 2016, as well as PSA. Colonoscopy 03/2016. REVIEW OF SYSTEMS: HEENT: No headache, no vision problems. Slurring of speech. No neck pain. Cardiopulmonary: No chest pain, shortness of breath, PND, orthopnea. GI: No nausea, vomiting, abdominal pain. : No history of hesitancy, frequency. Extremities: No swelling of legs. Neurologic: Weakness on the right side and slightly dizzy. No seizures. Chronic back pain. The rest of the review of systems are stable. PHYSICAL EXAMINATION: VITAL SIGNS: Stable. 5 feet 11, 190 pounds. HEENT: Atraumatic, normocephalic. 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 Tongue is in midline. NECK: Supple. No lymphadenopathy. CHEST: Clear. HEART: Sounds are regular. ABDOMEN: Belly is soft, nontender. Good bowel sounds. NEUROLOGIC: He has slightly dysarthric, and a slight weakness in the hand smash fixer. No obvious deficits noted. Patient otherwise intact. INVESTIGATIONS: CBC: White cell count 6.7, hematocrit 40, platelets 182,000. PT 11, INR 1.08. SMA7: Sodium 134, potassium 4.8, chloride 97, BUN 24, creatinine 1.4, glucose 169. LFTs were normal. CT head: No hemorrhage. Atrophy with chronic microvascular ischemic changes. CT neck and angiogram: Apparently thrombus within the basilar artery similar to the recent study performed in [facility]. No significant stenosis in either common carotid and internal carotid artery. EKG: Normal sinus rhythm. Incomplete right bundle. Nothing acute. ASSESSMENT AND PLAN: 1. 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 Discussed with Dr. Lincoln. Plan is IV fluids. Keep the blood pressure high for the next 48 hours. ICU, monitor and continue aspirin, Eliquis 5 mg p.o. b.i.d., increase the pravastatin 80 mg per day. Check the lipid panel, keep the low density lipoprotein less than 70. 2. Type 2 diabetes on metformin. We will hold it for 48 hours. Follow up on sliding scale with insulin coverage. 3. Benign prostatic hypertrophy, on Proscar and Flomax. 4. Acid reflux disease, on Prilosec. 5. Reconcile home medicines: A. Hypothyroidism on Synthroid. B. Paroxysmal atrial fibrillation on Cordarone. C. Chronic neuropathy pain on Neurontin, Mirapex and Percocet. 6. Physical therapy consult. I appreciated Dr. Lincoln seeing the patient in the emergency room and coordinating all the CT scans and discussed with the family. We will follow up. cc: Neftaly Casey MD MTDD
[2017-03-25] MEDS: HUMALOG SUBQ SCH ×2 (00:34→06:54)
[2017-03-25] MEDS: NS 1,000 ML IV SCH (04:30)
[2017-03-25 06:15] VITALS: BP 150/95
[2017-03-25 06:46] LABS: MANUAL DIFF NEEDED? NO
[2017-03-25 06:48] LABS: BASO% 0.2 % (0.0-0.8); EOS# 0.21 X1000 (0.0-0.7); EOS% 3.8 % (0.0-10.0); HEMATOCRIT 38.6 % (42.0-52.0); HEMOGLOBIN 12.4 g/dL (14.0-18.0); LYMPH# 1.33 X1000 (1.2-3.4); LYMPH% 23.8 % (20.5-51.1); MCH 28.9 PG (27-31); MCHC 32.1 g/dL (33-37); MONO# 0.65 X1000 (0.11-0.59); MONO% 11.6 % (1.7-9.3); MPV 10.3 FL (7.4-10.4); NEUT% 60.6 % (42.2-75.2); PLT 152 X1000 (130-400); RBC 4.29 XMIL (4.7-6.1)
[2017-03-25] MEDS ORDERED: PRILOSEC PO SCH (07:00)
[2017-03-25 07:01] LABS: INR 1.05; PROTIME 11.1 Seconds (9.2-11.7)
[2017-03-25 07:16] LABS: HDL 28 mg/dL (35-55); LDL 71 mg/dL; TRIGLYCERIDES 247 mg/dL (39-160); VLDL 49 mg/dL
[2017-03-25 07:17] LABS: AGAP 11; BUN 15 mg/dL (8-22); CALCIUM 9.2 mg/dL (8.8-10.2); CHLORIDE 104 mmol/L (98-107); COSMO 285; POTASSIUM 4.3 mmol/L (3.5-5.1); SODIUM 140 mmol/L (136-145); TCO2 25 mmol/L (25-35)
[2017-03-25] MEDS ORDERED: THYROID PO SCH ×2 (09:00)
[2017-03-25] MEDS ORDERED: FLOMAX PO SCH (09:00)
[2017-03-25] MEDS ORDERED: CORDARONE PO SCH (09:00)
[2017-03-25] MEDS ORDERED: ASPIRIN PO SCH (09:00)
[2017-03-25] MEDS ORDERED: ICAR-C PLUS PO SCH (09:00)
--- NOTE | 2017-03-25 09:16 | PROGRESS NOTE ---
DATE: 03/25/2017 Dr. Bonner did well through the night and he has completely recovered to baseline this morning. On exam, he has very slight ataxia in the limbs, but this is the same as several months ago. Acute changes resolved. Speech is back to baseline, no longer dysarthric. There is nothing new neurologically. We reviewed his CT angiogram findings. We discussed options, including referral for vascular surgery opinion, with consideration for intervention with mechanical device or medication changes. We discussed bleeding risk with more aggressive anticoagulation and he has Cardiology evaluation coming up in less than 2 weeks. Today, we will get physical therapy to assess him and plan for him to be discharged home to continue aggressive hydration, follow carefully off of metoprolol and Imdur, and followup with Dr. Casey as needed. He will let me know if he has any more episodes. cc: MD Neftaly Martinez III, MD MTDD
[2017-03-25] MEDS: ELIQUIS PO SCH (09:20)
[2017-03-25] MEDS: PRED FORTE 1% OPH SUSPENSION RIGHT EYE SCH (09:23)
--- NOTE | 2017-03-25 19:41 | DISCHARGE SUMMARY ---
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 SECONDARY DIAGNOSIS: 1. Abnormal electrocardiogram with right bundle. 2. Paroxysmal atrial flutter. 3. Benign prostatic hypertrophy. 4. Coronary artery disease status post bypass surgery and left anterior descending stenosis. 5. Type 2 diabetes. 6. Glaucoma. 7. Hyperlipidemia. 8. Hypothyroidism. 9. Meniere's disease. 10. Peripheral neuropathy. 11. Cervical spine spondylosis. 12. History of brainstem stroke on the right side. CONSULTANTS: Teresa Lincoln III, MD. BRIEF HISTORY: Please see the history and physical that was done on 03/24/2017. 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 He was recently discharged from [facility]. Further workup, CT angiogram showed basilar artery thrombosis. Carotid Dopplers were negative. He already had a cardiac catheterization done by Dr. Worthy. They are planning to do a nuclear scan. In the meantime, he had two TIA episodes. Treatment was optimized by giving IV fluids, hold the blood pressure medicine along with aspirin, Pravachol Eliquis. The patient came back to the baseline. His speech was much improved. He is able to ambulate very well without any deficits. LABORATORIES: CBC: White cell count 5.5, hematocrit 38, platelets 152,000. PT 11, INR 1. SMA7: Sodium 140, potassium 4.3, chloride 104, BUN 15, creatinine 1.1, glucose 192, triglycerides 247, cholesterol 148, LDL 71, HDL 28. CT angiogram with basilar artery thrombosis. DISCHARGE INSTRUCTIONS: 1. As per Dr. Lincoln, we will hold the Toprol and Isordil for the time being and Percocet 1 tablet as needed, metformin p.o. b.i.d., hold for 48 hours, Pravachol 80 mg daily, fish oil 1000 mg daily, multivitamin 1 tablet daily, coenzyme Q10, 1 tablet daily, [place] Thyroid 60 mg daily, prednisolone acetate 1 drop in the right eye b.i.d., Finasteride 5 mg daily, Cordarone 200 daily, Prilosec 20 daily, Lyrica 150 p.o. daily, Mirapex 0.125, 1-2 tablets daily, Vexol ophthalmic solution, 1 drop in the left eye as needed, Neurontin 900 at bedtime, Icar C Plus 1 tablet daily, Eliquis 5 mg p.o. b.i.d., hold the torsemide, hold the metoprolol and Eliquis 5 p.o. b.i.d., pravastatin 80 mg daily. 2. Follow up in my office next week as well as Dr. Lincoln. He is also going to see Dr. Worthy on April 06 for the underlying coronary artery disease. cc: MD Teresa Edge III, MD
[2017-03-26] MEDS ORDERED: PRAVACHOL PO SCH (09:00)
== END 2017-03-25 10:33 | disposition home or self-care (01) ==
LOC: EDIPHOLD 14:12 → ED 14:12 → ICU 03-25 03:04
PROVIDERS: ADMIT Internal Medicine; ATTEND Internal Medicine